=== PATIENT | female | born 1945 | race African-American/Black ===

== ENCOUNTER 2017-07-04 21:32 | Emergency (ER) | payer OTHER, MEDICARE ==
--- NOTE | 2017-07-04 23:28 | XRay Report ---
FINAL REPORT PROCEDURE: XR ELBOW 3+V LT TECHNIQUE: LEFT elbow radiographs, including AP, lateral, and oblique views. CPT 28575 HISTORY: left elbow pain COMPARISON: No prior studies are available for comparison. FINDINGS: Fracture (s) and/or Dislocation(s): None . Alignment: Normal . Joint space(s): Mild narrowing of the joint spaces. Soft tissues: Normal . Bone mineralization: Normal . Foreign bodies: None . IMPRESSION: No acute fracture or dislocation. Mild arthritis.
[2017-07-05] MEDS ORDERED: NORCO 5/325 PO ONE (00:40)
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
[2017-07-05] MEDS ORDERED: NORCO 5/325 ONE (00:43)
[2017-07-05 06:19] VITALS: BP 145/72
== END 2017-07-05 01:57 | disposition home or self-care (01) ==
LOC: ED 21:32
DX: M25.522 Pain in left elbow (principal); R07.9 Chest pain, unspecified; I10 Essential (primary) hypertension; E78.00 Pure hypercholesterolemia, unspecified; V87.7XXA Person injured in collision between other specified motor vehicles (traffic), initial encounter; Y93.89 Activity, other specified; Y99.8 Other external cause status; Y92.410 Unspecified street and highway as the place of occurrence of the external cause
CPT/HCPCS: 93005; 93010; 99284